=== PATIENT | female | born 2000 | race Caucasian/White ===

== ENCOUNTER 2022-04-12 15:47 | Emergency (ER) | payer OTHER ==
[~2022-04-12 15:47] MED LIST: CIPRO500 MG PO; FLAGYL500 MG PO; NORCO 5-325 TA1 EACH PO; OMEPRAZOLE40 MG PO; PRENATAL VITAM1 EAC8 PO
== END 2022-04-12 16:41 | disposition left against medical advice (07) ==
LOC: ER1 15:47
DX: Z53.21 Procedure and treatment not carried out due to patient leaving prior to being seen by health care provider (principal)